=== PATIENT | male | born 1955 | race Hispanic/Latino ===

== ENCOUNTER → 2019-05-24 | Outpatient (CLI) | payer MEDICARE, OTHER ==
--- NOTE | 2019-05-24 12:48 | Diagnostic Imaging Report ---
Exam: Head CT without contrast History: Concussion, fall, headache, hypertension Comparison studies: None Technique: Axial images were obtained from the skull base to the vertex. Coronal and sagittal images reconstructed from the axial data. Dose modulation, iterative reconstruction, and/or weight based adjustment of the mA/kV was utilized to reduce the radiation dose to as low as reasonably achievable. Radiation dose: Total DLP: 832 mGy*cm. Estimated effective dose: DLP x 0.015 Intravenous contrast: None Findings: Scalp: No abnormalities. Bones: No fractures, blastic or lytic lesions. Brain sulci: Sulci at the superior convexity are mildly effaced. No herniation. Sylvian fissures and frontal sulci are mildly prominent. Ventricles: Mildly dilated which may be compensatory related to volume loss. No acute hydrocephalus. Extra-axial spaces: No masses, no fluid collection. Parenchyma: No mass, acute hemorrhage or acute cortical insults. Ill-defined and confluent hypodensities in the supratentorial white matter are nonspecific but are most compatible with chronic microvascular ischemic changes. There are small chronic lacunar infarcts in the bifrontal rosado radiata, right thalamus, left ventral midbrain and bilateral subinsular regions. There is a chronic cortical/subcortical insult in the posterior right cerebellum. Sellar/suprasellar region: No abnormalities. Craniocervical junction: Patent foramen magnum. No Chiari one malformation. Incidental findings: Atherosclerotic calcifications in the carotid siphons. Scattered inflammatory mucosal thickening in the included ethmoid air cells and sphenoid sinuses. Both sphenoid sinuses are partially opacified and contain secretions which may indicate acute sinusitis. IMPRESSION: 1. No acute posttraumatic abnormalities. 2. Mild generalized parenchymal volume loss. 3. Chronic right posterior cerebellar infarct, with multiple chronic lacunar infarcts and moderate chronic microvascular ischemic changes 4. Mild sulcal effacement at the superior convexities is nonspecific, possibly related to systemic hypertension. No herniation. 5. Nonspecific paranasal sinusitis. Signed by: Dr. Hebr Amin M.D. on 05/24/2019 12:45 PM
== END ==
LOC: CT 11:23
PROVIDERS: ATTEND Family Medicine
DX: S06.0X0D Concussion without loss of consciousness, subsequent encounter (principal)
CPT/HCPCS: 70450